=== PATIENT | female | born 2000 | race Caucasian/White ===

== ENCOUNTER 2022-03-04 00:09 | Emergency (ER) | payer SELFPAY ==
[2022-03-04 00:27] VITALS: BP 157/118; PULSE 110
[2022-03-04] MEDS ORDERED: Bupivacaine 0.5% 10 ML SDV INJECT ONE (01:26)
[2022-03-04] MEDS ORDERED: Lidocaine 1% with EPINEPHrine 1:100,000 10 ML MDV INJECT ONE (01:26)
[2022-03-04] MEDS ORDERED: Penicillin V Potassium 500 MG Tab PO STA ×2 (01:29→02:52)
[2022-03-04] MEDS ORDERED: Lidocaine 1% with EPINEPHrine 1:100,000 20 ML MDV ONE (01:34)
[2022-03-04] MEDS ORDERED: Lidocaine 1% with EPINEPHrine 1:100,000 20 ML MDV INJECT ONE (01:35)
== END 2022-03-04 02:59 | disposition home or self-care (01) ==
LOC: JD.ED 00:09
DX: K08.89 Other specified disorders of teeth and supporting structures (principal); E66.9 Obesity, unspecified; Z68.43 Body mass index [BMI] 50.0-59.9, adult; Z88.2 Allergy status to sulfonamides
CPT/HCPCS: 64400; 99283; A9270; J3490